=== PATIENT | male | born 1970 | race Caucasian/White ===

== ENCOUNTER 2016-07-29 20:35 | Emergency (ER) | payer MEDICAID ==
[2016-07-29] MEDS ORDERED: Bacitracin/Neomycin/Polymyxin B Oint 0.9 GM U/D Packet ONE (20:57)
[2016-07-29] MEDS ORDERED: Lidocaine 2% with EPINEPHrine 1:100,000 20 ML MDV INJECT ONE (21:00)
[2016-07-29] MEDS ORDERED: Lidocaine 2% with EPINEPHrine 1:100,000 20 ML MDV ONE (21:03)
--- NOTE | 2016-07-29 21:27 | EDM.PDOC ---
ED HPI GENERAL MEDICAL PROBLEM - General Chief Complaint: General Stated Complaint: fall Time Seen by Provider: 07/29/16 21:00 Source of Information: Reports: Patient, Significant Other History Limitations: Reports: Altered Mental Status, Intoxication - History of Present Illness INITIAL COMMENTS - FREE TEXT/NARRATIVE: Patient was with girlfriend at local bar after having 1 beer and 1 shot of liqour he and his S/O were walking home when he tripped and fell to the ground hitting the right frontal region of his head sustaining a 2 cm laceration to the right frontal region. Girlfriend states no LOC-multiple abrasions on the bilateral hands, left knee and left cheek bone and left ear. Patient denies nausea or vomiting or other injury. "Just put some stitches in my head and let me out of here." Onset: Today Onset Date: 07/29/16 Onset Time: 20:30 (Arrival by ambulance-transportation only) Duration: Improving Location: Reports: Head, Face, Upper Extremity, Left, Upper Extremity, Right, Lower Extremity, Left Quality: Reports: Burning Severity: Mild Improves with: Reports: Rest Worsens with: Reports: Other (Abrasions cleansing) Associated Symptoms: Denies: Confusion, Fever/Chills, Headaches, Nausea/Vomiting , Seizure Treatments [employer]: Reports: Other (see below) (ETOH) - Related Data Allergies Allergy/AdvReac Type Severity Reaction Status Date / Time No Known Allergies Allergy Verified 07/29/16 20:43 Home Meds: Home Meds . [No Known Home Meds] 12/20/15 [History] Past Medical History Cardiovascular History: Reports: Cardiomyopathy, Hypertension Musculoskeletal History: Reports: Fracture (Right Femur) Psychiatric History: Reports: PTSD - Past Surgical History Musculoskeletal Surgical History: Reports: Knee Replacement, Other (See Below) Social & Family History - Family History Family Medical History: Noncontributory - Tobacco Use Smoking Status *Q: Current Every Day Smoker Years of Tobacco use: 20 Packs/Tins Daily: 0.5 Used Tobacco, but Quit: Yes Month Tobacco Last Used: 5 years ago - Caffeine Use Caffeine Use: Reports: None, Coffee - Alcohol Use Alcohol Use History: Yes Number of Drinks Per Day: 12 Alcohol Use in Last Twelve Months: Yes Alcohol Use Frequency: Daily - Recreational Drug Use Recreational Drug Use: No - Living Situation & Occupation Living situation: Reports: with Significant Other Occupation: Unemployed ED ROS GENERAL - Review of Systems Review Of Systems: See Below Constitutional: Reports: No Symptoms HEENT: Reports: Ear Pain Respiratory: Reports: No Symptoms Cardiovascular: Reports: No Symptoms Endocrine: Reports: No Symptoms GI/Abdominal: Reports: No Symptoms : Reports: No Symptoms Musculoskeletal: Reports: No Symptoms Skin: Reports: Lesions, Other (Simple laceration Right Frontal region-abrasions and contusions) Neurological: Reports: No Symptoms. Denies: Confusion, Headache, Numbness, Paresthesia, Trouble Speaking, Difficulty Walking, Change in Speech, Gait Disturbance Psychiatric: Reports: Mood Lability Hematologic/Lymphatic: Reports: No Symptoms Immunologic: Reports: No Symptoms ED EXAM, GENERAL - Physical Exam Exam: See Below Exam Limited By: Intoxication General Appearance: Alert, WD/WN, No Apparent Distress Eye Exam: Bilateral Eye: EOMI, Normal Fundi, Normal Inspection, Nystagmus, PERRL , Vision Changes (Negative) Ears: Normal Canal, Hearing Grossly Normal, Normal TMs (Small abrasion) Ear Exam: Left Ear: Auricle Normal (small abrasion Left auricle), Bilateral Ear : Canal Normal, TM normal Nose: Normal Inspection, Normal Mucosa, No Blood Throat/Mouth: Normal Inspection, Normal Lips, Normal Teeth (Dental caries with oral snuff), Normal Gums, Normal Oropharynx, Normal Voice, No Airway Compromise Head: Normocephalic. No: Facial Tenderness (2 cm laceration Right frontal region-hematoma noted) Neck: Normal Inspection, Supple, Non-Tender, Full Range of Motion Respiratory/Chest: No Respiratory Distress, Lungs Clear, Normal Breath Sounds, No Accessory Muscle Use, Chest Non-Tender Cardiovascular: Normal Peripheral Pulses, Regular Rate, Rhythm, No Edema, No Gallop, No JVD, No Murmur, No Rub Peripheral Pulses: 2+: Radial (L), Radial (R) GI/Abdominal: Non-Tender (Male) Exam: Deferred Rectal (Males) Exam: Deferred Back Exam: Normal Inspection, Full Range of Motion Extremities: Normal Inspection, Normal Range of Motion, Non-Tender, No Pedal Edema, Normal Capillary Refill (Varicosities and telangitasis noted.) Neurological: Alert, Oriented, CN II-XII Intact, Normal Cognition, Normal Gait, Normal Reflexes, No Motor/Sensory Deficits. No: Memory Loss Recent Events, Abnormal Reflexes, Sensory/Motor Deficit Psychiatric: Normal Mood, Other (Refuses treatment through out treatment with cleansing abrasion and dressings) Skin Exam: Warm, Dry, No Rash, Ecchymosis Lymphatic: No Adenopathy ED GENERAL MEDICAL PROCEDURES - Laceration/Wound Repair Left Lateral Head Lac/wound length in cm: 2 Appearance: Superficial, Irregular, Mildly Contaminated Distal NVT: Neuro & Vascular Intact, No Tendon Injury Anesthetic Type: Local Local Anesthesia - Lidocaine (Xylocaine): 1% With EPI Local Anesthetic Volume: 2cc Skin Prep: Chlorhexidine (Hibiciens), Saline, Sterile Drape Saline irrigation (cc's): 100 Exploration/Debridement/Repair: Wound Explored, Explored to Base, Minimal Debridement Closed with: Tania Sterile Dressing Applied: Provider Tetanus Status Addressed: Other (Up to date per patient) Course - Orders/Labs/Meds Meds: Medications Discontinued Medications Generic Name Dose Route Start Last Admin Trade Name Humbleq PRN Reason Stop Dose Admin Lidocaine/Epinephrine Confirm 07/29/16 21:03 Xylocaine 2% With Epinephrine 1:100,000 Administered 07/29/16 21:04 Dose 20 ml .ROUTE .STK-MED ONE Neomycin/Polymyxin/Bacitracin Confirm 07/29/16 20:57 Triple Antibiotic Oint Administered 07/29/16 20:58 Dose 2 each .ROUTE .STK-MED ONE Departure - Departure Time of Disposition: 21:39 Disposition: Against Medical Advice 07 Clinical Impression: Head injury, Laceration, Multiple contusions, Intoxication - Discharge Information Forms: ED Department Discharge Additional Instructions: Discussed with S/O observation post head injury Refuses CT. Skin Clip Removal in 8-10 days F/U ER and PCP as indicated any worsening of condition, confusion, fever or abnormal LOC. Patient signed AMA after laceration repair. - Problem List & Annotations (1) Laceration SNOMED Code(s): 330488679 Code(s): JBC8053 - Status: Acute Current Visit: Yes (2) Head injury SNOMED Code(s): 22698918 Code(s): S09.90XA - UNSPECIFIED INJURY OF HEAD, INITIAL ENCOUNTER Status: Acute Current Visit: Yes Qualifiers: Encounter type: initial encounter Qualified Code(s): S09.90XA - Unspecified injury of head, initial encounter (3) ETOH abuse SNOMED Code(s): 80947210 Code(s): F10.10 - ALCOHOL ABUSE, UNCOMPLICATED Status: Acute Current Visit: Yes - Assessment/Plan Assessment:: Ground Level fall Intoxication 2 cm laceration Right Frontal region with repair Abrasions and contusion- AMA for CT scan Plan: Discussed with S/O observation post head injury Refuses CT. Skin Clip Removal in 8-10 days F/U ER and PCP as indicated any worsening of condition, confusion, fever or abnormal LOC. Patient signed AMA after laceration repair.
[2016-07-29] MEDS ORDERED: Ciprofloxacin 500 MG Tab ONE (22:15)
[2016-07-30 00:08] VITALS: BP 178/111
[2016-07-30] MEDS ORDERED: Bacitracin/Neomycin/Polymyxin B Oint 0.9 GM U/D Packet TOP ONE (01:29)
== END 2016-07-29 21:25 | disposition left against medical advice (07) ==
LOC: CC.ED 20:35
DX: S01.81XA Laceration without foreign body of other part of head, initial encounter (principal); S60.512A Abrasion of left hand, initial encounter; S60.511A Abrasion of right hand, initial encounter; S80.212A Abrasion, left knee, initial encounter; S00.81XA Abrasion of other part of head, initial encounter; S00.412A Abrasion of left ear, initial encounter; F10.129 Alcohol abuse with intoxication, unspecified; I10 Essential (primary) hypertension; F43.10 Post-traumatic stress disorder, unspecified; F17.210 Nicotine dependence, cigarettes, uncomplicated; Z96.659 Presence of unspecified artificial knee joint; W01.0XXA Fall on same level from slipping, tripping and stumbling without subsequent striking against object, initial encounter
CPT/HCPCS: 12011; 99283

== ENCOUNTER 2017-04-12 01:25 | Emergency (ER) | payer BC, MEDICAID ==
[2017-04-12] MEDS ORDERED: Nitroglycerin 0.4 MG Tab.SL SL PRN (01:47)
[2017-04-12] MEDS: Nitroglycerin 0.4 MG Tab.SL SL PRN ×2 (01:57→02:21)
--- NOTE | 2017-04-12 02:14 | EDM.PDOC ---
ED HPI GENERAL MEDICAL PROBLEM - General Chief Complaint: General Stated Complaint: Shoulder pain Time Seen by Provider: 04/12/17 01:40 Source of Information: Reports: Patient History Limitations: Reports: No Limitations - History of Present Illness INITIAL COMMENTS - FREE TEXT/NARRATIVE: presents to the ER with left shoulder pain, mild chest pain and some sob. Patient states he was told he had an enlarged heart about 15 years ago. Onset: Today, Sudden Duration: Minutes: Location: Reports: Chest Quality: Reports: Dull, Pressure Severity: Mild Improves with: Reports: None Worsens with: Reports: None left shoulder Pain Score (Numeric/FACES): 8 bilat thighs Pain Score (Numeric/FACES): 5 - Related Data Allergies Allergy/AdvReac Type Severity Reaction Status Date / Time No Known Allergies Allergy Verified 04/12/17 01:39 Home Meds: Home Meds Aspirin 325 mg PO BID 04/12/17 [History] Past Medical History Cardiovascular History: Reports: Cardiomyopathy, Hypertension Musculoskeletal History: Reports: Fracture (Right Femur) Psychiatric History: Reports: PTSD - Past Surgical History Musculoskeletal Surgical History: Reports: Knee Replacement, Other (See Below) Social & Family History - Family History Family Medical History: Noncontributory Cardiac: Reports: Cardiomyopathy, Heart Failure - Tobacco Use Smoking Status *Q: Current Every Day Smoker Years of Tobacco use: 15 Packs/Tins Daily: 0.5 Used Tobacco, but Quit: Yes Month Tobacco Last Used: 5 years ago - Tobacco Core Measures Tobacco Use/Smoking Within Last 30 Days: Yes Smoking Frequency Within Last 30 Days: Reports: Four or Less Cigarettes Per Day - Caffeine Use Caffeine Use: Reports: None, Coffee - Alcohol Use Alcohol Use History: Yes Days Per Week of Alcohol Use: 7 Number of Drinks Per Day: 8 Total Drinks Per Week: 56 - Recreational Drug Use Recreational Drug Use: No Recreational Drug Type: Reports: Marijuana/Hashish - Living Situation & Occupation Living situation: Reports: with Significant Other Occupation: Unemployed ED ROS GENERAL - Review of Systems Review Of Systems: See Below Constitutional: Reports: No Symptoms HEENT: Reports: No Symptoms Respiratory: Reports: Shortness of Breath Cardiovascular: Reports: Chest Pain Endocrine: Reports: No Symptoms GI/Abdominal: Reports: No Symptoms : Reports: No Symptoms Musculoskeletal: Reports: Leg Pain Skin: Reports: No Symptoms Neurological: Reports: No Symptoms Psychiatric: Reports: No Symptoms Hematologic/Lymphatic: Reports: No Symptoms Immunologic: Reports: No Symptoms ED EXAM, GENERAL - Physical Exam Exam: See Below Exam Limited By: No Limitations General Appearance: Alert, Anxious Ears: Normal External Exam Nose: Normal Inspection Throat/Mouth: Normal Inspection Head: Atraumatic Neck: Normal Inspection Respiratory/Chest: No Respiratory Distress Cardiovascular: Normal Peripheral Pulses GI/Abdominal: Normal Bowel Sounds (Male) Exam: No Hernia Rectal (Males) Exam: Normal Exam Back Exam: Normal Inspection Extremities: Normal Inspection Neurological: Alert, Oriented Psychiatric: Normal Affect Skin Exam: Warm, Dry Course - Vital Signs Last Recorded V/S: Last Vital Signs Temp 97.6 F 04/12/17 02:28 Pulse 95 04/12/17 02:28 Resp 16 04/12/17 02:28 BP 160/101 H 04/12/17 02:28 Pulse Ox 96 04/12/17 02:28 - Orders/Labs/Meds Orders: Active Orders 24 hr Category Date Time Status Cardiac Monitoring [RC] . DIRECTED Care 04/12/17 01:56 Ordered EKG Documentation Completion [RC] STAT Care 04/12/17 01:35 Active Chest 2V [CR] Stat Exams 04/12/17 01:47 Ordered Nitroglycerin [Nitrostat] Med 04/12/17 01:45 Active 0.4 mg SL Q5M PRN Nitroglycerin [Nitrostat] Med 04/12/17 01:47 Ordered 0.4 mg SL Q5M PRN Medication Orders Nitroglycerin (Nitrostat) 0.4 mg SL Q5M PRN PRN Reason: Chest Pain Last Admin: 04/12/17 02:21 Dose: 0.4 mg Admin: 04/12/17 01:57 Dose: 0.4 mg Nitroglycerin (Nitrostat) 0.4 mg SL Q5M PRN PRN Reason: Chest Pain Labs: Laboratory Tests 04/12/17 04/12/17 04/12/17 Range/Units 02:00 02:00 02:00 WBC 5.2 (5.0-10.0) 10^3/uL RBC 4.17 L (4.50-6.00) 10^6/uL Hgb 12.9 L (14.0-18.0) g/dL Hct 36.1 L (40.0-54.0) % MCV 86.6 (82.0-94.0) fL MCH 30.9 (27.0-32.0) pg MCHC 35.7 (33.0-38.0) g/dL RDW Coeff of Karl 14.8 (11.0-15.0) % Plt Count 99 L (150-400) 10^3/uL MPV 9.8 fL PT 10.0 (9.7-12.3) SEC INR 0.93 (0.92-1.18) APTT 28.7 (24.5-30.9) SEC D-Dimer, Quantitative 0.47 (0.00-0.50) Sodium 131 L (136-145) mEq/L Potassium 3.7 (3.5-5.0) mEq/L Chloride 95 L (98-106) mEq/L Carbon Dioxide 24 (21-32) mmol/L BUN 9 (7-18) mg/dL Creatinine 0.7 (0.7-1.3) mg/dL Est Cr Clr Drug Dosing 184.14 mL/min Estimated GFR (MDRD) > 60 (>=60) mL/min Glucose 106 H (75-99) mg/dL Calcium 8.4 (8.4-10.1) mg/dL Total Bilirubin 0.4 (0.0-1.0) mg/dL AST 45 H (15-37) U/L ALT 49 (12-78) U/L Alkaline Phosphatase 70 (46-116) U/L Creatine Kinase 255 H (35-232) U/L Troponin I < 0.017 (0.00-0.06) ng/mL Total Protein 7.3 (6.4-8.2) g/dL Albumin 3.8 (3.4-5.0) g/dL Urine Color (YELLOW) Urine Appearance (CLEAR) Urine pH (4.5-8.0) Ur Specific [place] (1.003-1.020) Urine Protein (NEGATIVE) mg/dL Urine Glucose (UA) (NEGATIVE) mg/dL Urine Ketones (NEGATIVE) mg/dL Urine Occult Blood (NEGATIVE) Urine Nitrite (NEGATIVE) Urine Bilirubin (NEGATIVE) Urine Urobilinogen (0.2-1.0) EU/dL Ur Leukocyte Esterase (NEGATIVE) Urine RBC (0-5) /HPF Urine WBC (0-5) /HPF 04/12/17 Range/Units 02:00 WBC (5.0-10.0) 10^3/uL RBC (4.50-6.00) 10^6/uL Hgb (14.0-18.0) g/dL Hct (40.0-54.0) % MCV (82.0-94.0) fL MCH (27.0-32.0) pg MCHC (33.0-38.0) g/dL RDW Coeff of Karl (11.0-15.0) % Plt Count (150-400) 10^3/uL MPV fL PT (9.7-12.3) SEC INR (0.92-1.18) APTT (24.5-30.9) SEC D-Dimer, Quantitative (0.00-0.50) Sodium (136-145) mEq/L Potassium (3.5-5.0) mEq/L Chloride (98-106) mEq/L Carbon Dioxide (21-32) mmol/L BUN (7-18) mg/dL Creatinine (0.7-1.3) mg/dL Est Cr Clr Drug Dosing mL/min Estimated GFR (MDRD) (>=60) mL/min Glucose (75-99) mg/dL Calcium (8.4-10.1) mg/dL Total Bilirubin (0.0-1.0) mg/dL AST (15-37) U/L ALT (12-78) U/L Alkaline Phosphatase (46-116) U/L Creatine Kinase (35-232) U/L Troponin I (0.00-0.06) ng/mL Total Protein (6.4-8.2) g/dL Albumin (3.4-5.0) g/dL Urine Color Light yellow (YELLOW) Urine Appearance Clear (CLEAR) Urine pH 6.0 (4.5-8.0) Ur Specific [place] 1.010 (1.003-1.020) Urine Protein Negative (NEGATIVE) mg/dL Urine Glucose (UA) Negative (NEGATIVE) mg/dL Urine Ketones Negative (NEGATIVE) mg/dL Urine Occult Blood Negative (NEGATIVE) Urine Nitrite Negative (NEGATIVE) Urine Bilirubin Negative (NEGATIVE) Urine Urobilinogen 0.2 (0.2-1.0) EU/dL Ur Leukocyte Esterase Negative (NEGATIVE) Urine RBC Not seen (0-5) /HPF Urine WBC Not seen (0-5) /HPF Meds: Medications Generic Name Dose Route Start Last Admin Trade Name Mayuri PRN Reason Stop Dose Admin Nitroglycerin 0.4 mg 04/12/17 01:45 04/12/17 02:21 Nitrostat SL 0.4 mg Q5M PRN Administration Chest Pain Nitroglycerin 0.4 mg 04/12/17 01:47 Nitrostat SL Q5M PRN Chest Pain Discontinued Medications Generic Name Dose Route Start Last Admin Trade Name Mayuri PRN Reason Stop Dose Admin Aspirin 324 mg 04/12/17 02:27 04/12/17 02:30 Aspirin PO 04/12/17 02:28 324 mg ONETIME ONE Administration Metoprolol Tartrate 25 mg 04/12/17 02:35 Lopressor PO 04/12/17 02:36 ONETIME ONE Departure - Departure Time of Disposition: 02:39 (I strongly suggested that the patient hold in ER for a few hours to repeat Troponins to rule out SC, but he declined and schose to go home.) Disposition: Home, Self-Care 01 Condition: Good Clinical Impression: Angina at rest, ETOH abuse - Discharge Information Instructions: Angina Pectoris Referrals: Rigoberto Steinberg MD [Primary Care Provider] - Additional Instructions: follow up with your regular doctor next week for possible referral to cardiology for further work-up. - My Orders Last 24 Hours: My Active Orders 04/12/17 01:35 EKG Documentation Completion [RC] STAT 04/12/17 01:45 Nitroglycerin [Nitrostat] 0.4 mg SL Q5M PRN 04/12/17 01:47 Chest 2V [CR] Stat Nitroglycerin [Nitrostat] 0.4 mg SL Q5M PRN 04/12/17 01:56 Cardiac Monitoring [RC] . DIRECTED - Assessment/Plan Last 24 Hours: My Active Orders 04/12/17 01:35 EKG Documentation Completion [RC] STAT 04/12/17 01:45 Nitroglycerin [Nitrostat] 0.4 mg SL Q5M PRN 04/12/17 01:47 Chest 2V [CR] Stat Nitroglycerin [Nitrostat] 0.4 mg SL Q5M PRN 04/12/17 01:56 Cardiac Monitoring [RC] . DIRECTED
[2017-04-12 02:24] LABS: CHLORIDE,CL 95 mEq/L (98-106); SODIUM,NA 131 mEq/L (136-145)
[2017-04-12] MEDS ORDERED: Aspirin 81 MG Tab.Chew PO ONE (02:27)
[2017-04-12 02:29] VITALS: BP 160/101
[2017-04-12] MEDS ORDERED: Metoprolol Tartrate 25 MG Tab PO ONE (02:35)
== END 2017-04-12 02:50 | disposition home or self-care (01) ==
LOC: CC.ED 01:25 → SUPCPDRO 01:25 → CC.ED 02:50
DX: I20.9 Angina pectoris, unspecified (principal); F10.10 Alcohol abuse, uncomplicated; Y90.9 Presence of alcohol in blood, level not specified; I10 Essential (primary) hypertension; I42.9 Cardiomyopathy, unspecified; F17.210 Nicotine dependence, cigarettes, uncomplicated; Z79.82 Long term (current) use of aspirin
CPT/HCPCS: 36415; 71046; 80053; 81001; 82550; 84484; 85027; 85379; 85610; 85730; 93005; 99283; A9270

== ENCOUNTER 2017-09-11 01:33 | Emergency (ER) | payer BC, MEDICAID ==
[2017-09-11 02:19] VITALS: BP 162/98
== END 2017-09-11 01:45 | disposition left against medical advice (07) ==
LOC: CC.ED 01:33
DX: Z53.21 Procedure and treatment not carried out due to patient leaving prior to being seen by health care provider (principal)

== ENCOUNTER 2017-10-13 06:55 | Emergency (ER) | payer SELFPAY ==
[2017-10-13] MEDS ORDERED: Naloxone 2 MG/2 ML Syringe IVPUSH ONE (07:19)
[2017-10-13] MEDS ORDERED: Ondansetron 4 MG/2 ML SDV IVPUSH STA (07:19)
[2017-10-13 07:32] LABS: CHLORIDE,CL 95 mEq/L (98-106); SODIUM,NA 130 mEq/L (136-145)
[2017-10-13 07:43] VITALS: BP 182/106
[2017-10-13] MEDS ORDERED: Sodium Chloride 0.9% 1,000 ML IV ONE (07:44)
--- NOTE | 2017-10-13 08:04 | EDM.PDOC ---
ED HPI GENERAL MEDICAL PROBLEM - General Chief Complaint: General Stated Complaint: GOT BAD HEROIN Time Seen by Provider: 10/13/17 07:30 Source of Information: Reports: Patient History Limitations: Reports: No Limitations - History of Present Illness INITIAL COMMENTS - FREE TEXT/NARRATIVE: Patient presents with complaints of "feeling off this am". Admits to injecting drugs at 430 today and questions if it "was a bad drug". He thought it was heroin but relates he has done that before and has never felt like this. He feels like he is uncoordinated, like he can't move well. Mild nausea. No vomiting. Feels on edge. Denies chest pain or shortness of breath. No vision changes. Feels weak. No fever. Onset: Today, Sudden Duration: Hour(s): Location: Reports: Generalized Severity: Moderate Improves with: Reports: Rest Associated Symptoms: Reports: Nausea/Vomiting, Weakness. Denies: Chest Pain, Fever/Chills, Loss of Appetite, Shortness of Breath - Related Data Allergies Allergy/AdvReac Type Severity Reaction Status Date / Time No Known Allergies Allergy Verified 10/13/17 07:01 Home Meds: Home Meds Lisinopril 40 mg PO DAILY 09/11/17 [History] Omeprazole 20 mg PO DAILY PRN 09/11/17 [History] Past Medical History Cardiovascular History: Reports: Cardiomyopathy, Hypertension Gastrointestinal History: Reports: GERD Musculoskeletal History: Reports: Fracture Psychiatric History: Reports: PTSD - Past Surgical History HEENT Surgical History: Reports: Tonsillectomy Musculoskeletal Surgical History: Reports: Knee Replacement, Other (See Below) Social & Family History - Family History Family Medical History: Noncontributory Cardiac: Reports: Cardiomyopathy, Heart Failure - Tobacco Use Smoking Status *Q: Current Some Day Smoker Years of Tobacco use: 20 Packs/Tins Daily: 0.2 - Caffeine Use Caffeine Use: Reports: None, Coffee - Recreational Drug Use Recreational Drug Use: Yes Recreational Drug Type: Reports: Amphetamines (Speed), Heroin, Methamphetamine Recreational Drug Use Frequency: Socially - Living Situation & Occupation Living situation: Reports: with Significant Other Occupation: Unemployed ED ROS GENERAL - Review of Systems Review Of Systems: See Below Constitutional: Reports: Malaise, Weakness, Fatigue. Denies: Night Sweats, Diaphoresis HEENT: Reports: Rhinitis. Denies: Ear Discharge, Ear Pain, Throat Pain, Throat Swelling Respiratory: Denies: Shortness of Breath, Wheezing, Cough Cardiovascular: Denies: Chest Pain, Edema, Lightheadedness Endocrine: Reports: Fatigue GI/Abdominal: Reports: Nausea. Denies: Abdominal Pain, Diarrhea : Reports: No Symptoms Musculoskeletal: Reports: No Symptoms Skin: Reports: No Symptoms Neurological: Reports: Confusion, Dizziness, Weakness, Change in Speech. Denies : Headache Psychiatric: Reports: Agitation. Denies: Hallucinations ED EXAM, GENERAL - Physical Exam Exam: See Below Exam Limited By: No Limitations General Appearance: Alert, WD/WN, No Apparent Distress Eye Exam: Bilateral Eye: EOMI, PERRL Ears: Normal External Exam, Normal TMs Nose: Normal Inspection, Normal Mucosa, No Blood Throat/Mouth: Normal Inspection, Normal Oropharynx Head: Normocephalic Neck: Normal Inspection, Supple, Non-Tender Respiratory/Chest: No Respiratory Distress, Lungs Clear, Normal Breath Sounds Cardiovascular: Tachycardia GI/Abdominal: Normal Bowel Sounds, Soft, Non-Tender Extremities: Normal Inspection, No Pedal Edema Neurological: Alert, Oriented Course - Vital Signs Last Recorded V/S: Last Vital Signs Temp 96.8 F 10/13/17 07:40 Pulse 116 H 10/13/17 07:40 Resp 16 10/13/17 07:40 BP 182/106 H 10/13/17 07:40 Pulse Ox 100 10/13/17 07:40 - Orders/Labs/Meds Orders: Active Orders 24 hr Category Date Time Status DRUG SCREEN URINE BIORAD [URCHEM] Stat Lab 10/13/17 08:29 Ordered Labs: Laboratory Tests 10/13/17 10/13/17 10/13/17 Range/Units 07:15 07:15 08:29 WBC 5.6 (5.0-10.0) 10^3/uL RBC 4.32 L (4.50-6.00) 10^6/uL Hgb 13.9 L (14.0-18.0) g/dL Hct 39.1 L (40.0-54.0) % MCV 90.5 (82.0-94.0) fL MCH 32.2 H (27.0-32.0) pg MCHC 35.5 (33.0-38.0) g/dL RDW Coeff of Karl 14.2 (11.0-15.0) % Plt Count 105 L (150-400) 10^3/uL Neut % (Auto) 58.6 (35-85) % Lymph % (Auto) 31.2 (10-55) % Luna % (Auto) 9.3 (0-16) % Eos % (Auto) 0.7 (0-5) % Baso % (Auto) 0.2 (0-3) % Neut # (Auto) 3.29 (1.80-7.00) 10^3/uL Lymph # (Auto) 1.75 (1.00-4.80) 10^3/uL Luna # (Auto) 0.52 (0.00-0.80) 10^3/uL Eos # (Auto) 0.04 (0.00-0.45) 10^3/uL Baso # (Auto) 0.01 10^3/uL Sodium 130 L (136-145) mEq/L Potassium 3.5 D (3.5-5.0) mEq/L Chloride 95 L (98-106) mEq/L Carbon Dioxide 25 (21-32) mmol/L BUN 5 L (7-18) mg/dL Creatinine 0.7 (0.7-1.3) mg/dL Est Cr Clr Drug Dosing TNP Estimated GFR (MDRD) > 60 (>=60) mL/min Glucose 121 H (75-99) mg/dL Calcium 8.1 L (8.4-10.1) mg/dL Total Bilirubin 0.4 (0.0-1.0) mg/dL AST 63 H (15-37) U/L ALT 62 (12-78) U/L Alkaline Phosphatase 85 (46-116) U/L Total Protein 7.9 (6.4-8.2) g/dL Albumin 3.9 (3.4-5.0) g/dL Urine Opiates Screen Negative (NEGATIVE) Ur Oxycodone Screen Negative (NEGATIVE) Urine Methadone Screen Negative (NEGATIVE) Ur Barbiturates Screen Negative (NEGATIVE) U Tricyclic Antidepress Negative (NEGATIVE) Ur Phencyclidine Scrn Negative (NEGATIVE) Ur Amphetamine Screen Negative (NEGATIVE) U Methamphetamines Scrn Positive H (NEGATIVE) Urine MDMA Screen Negative (NEGATIVE) U Benzodiazepines Scrn Negative (NEGATIVE) Urine Cocaine Screen Negative (NEGATIVE) U Marijuana (THC) Screen Negative (NEGATIVE) Meds: Medications Discontinued Medications Generic Name Dose Route Start Last Admin Trade Name Mayuri PRN Reason Stop Dose Admin Sodium Chloride 1,000 mls @ 999 mls/hr 10/13/17 07:44 10/13/17 07:48 Normal Saline IV 10/13/17 08:44 999 mls/hr .BOLUS ONE Administration Naloxone HCl 1 mg 10/13/17 07:19 10/13/17 07:35 Narcan IVPUSH 10/13/17 07:20 1 mg ONETIME ONE Administration Ondansetron HCl 4 mg 10/13/17 07:19 10/13/17 07:35 Zofran IVPUSH 10/13/17 07:20 4 mg NOW STA Administration - Re-Assessments/Exams Free Text/Narrative Re-Assessment/Exam: 10/13/17 0800 Patient given Narcan, started IV fluids. Is appropriate. Did take some time to obtain a urine specimen. Tested positive for meth. After patient was given a liter of fluids, opted to leave AMA. Departure - Departure Time of Disposition: 09:00 Disposition: Against Medical Advice 07 Condition: Fair Clinical Impression: Methamphetamine abuse - Discharge Information Referrals: Provider,Unknown [Ordering Only Provider] - Forms: ED Department Discharge - My Orders Last 24 Hours: My Active Orders 10/13/17 08:29 DRUG SCREEN URINE BIORAD [URCHEM] Stat - Assessment/Plan Last 24 Hours: My Active Orders 10/13/17 08:29 DRUG SCREEN URINE BIORAD [URCHEM] Stat
== END 2017-10-13 09:00 | disposition left against medical advice (07) ==
LOC: CC.ED 06:55
DX: F15.120 Other stimulant abuse with intoxication, uncomplicated (principal); F17.210 Nicotine dependence, cigarettes, uncomplicated; I10 Essential (primary) hypertension; Z79.899 Other long term (current) drug therapy
CPT/HCPCS: 36415; 80053; 80305-QW; 85025; 96361; 96374; 96375; 99285; J2310; J2405; J7030

== ENCOUNTER 2017-10-14 04:57 | Emergency (ER) | payer SELFPAY ==
[2017-10-14] MEDS ORDERED: Ondansetron 4 MG Tab.DIS PO ONE ×2 (04:58→05:46)
[2017-10-14 05:01] VITALS: BP 186/114
[2017-10-14] MEDS ORDERED: Lisinopril 20 MG Tab PO SCH ×2 (05:45→06:00)
[2017-10-14] MEDS ORDERED: LORazepam 0.5 MG Tab PO ONE ×2 (05:46→15:20)
[2017-10-14] MEDS ORDERED: Lisinopril 5 MG Tab PO ONE (05:47)
[2017-10-14] MEDS ORDERED: Take Home: LORazepam 0.5 MG Tab, 2 Tab Pack PO ONE (05:49)
[2017-10-14] MEDS ORDERED: Lisinopril 20 MG Tab ONE (05:56)
--- NOTE | 2017-10-14 05:57 | EDM.PDOC ---
ED HPI GENERAL MEDICAL PROBLEM - General Chief Complaint: General Stated Complaint: ALCOHOL WITHDRAWAL Time Seen by Provider: 10/14/17 05:37 - History of Present Illness INITIAL COMMENTS - FREE TEXT/NARRATIVE: Yoan is a 46 year old male who presents to the ED with c/o alcohol withdrawal. He reports he was seen in the ED early yesterday morning as he had used methamphetamine. He reports he was hanging out with the wrong crown and now he has realized this. He reports he normally drinks 6-12 beers/day. He reports his last drink was Friday. He reports now he has tremors and is very anxious. He is wondering if he can have a medication to help him with these symptoms and "prevent seizures." He is alert and oriented. He denies any delusions. Denies any chest pain, dizziness, or shortness of breath. He reports he did have some chest tightness earlier. Reports he has had nausea and vomiting, as well as cold sweats. Denies any other issues. Had lab work completed yesterday morning. Urine drug screen was positive for methamphetamines. Associated Symptoms: Reports: Diaphoresis, Headaches. Denies: Confusion, Chest Pain, Cough, cough w sputum, Fever/Chills, Loss of Appetite, Malaise, Nausea/ Vomiting, Rash, Seizure, Shortness of Breath, Syncope, Weakness Abdominal Pain Score (Numeric/FACES): 7 - Related Data Allergies Allergy/AdvReac Type Severity Reaction Status Date / Time No Known Allergies Allergy Verified 10/14/17 04:59 Home Meds: Home Meds Lisinopril 40 mg PO DAILY 09/11/17 [History] Omeprazole 20 mg PO DAILY PRN 09/11/17 [History] Past Medical History Cardiovascular History: Reports: Cardiomyopathy, Hypertension Gastrointestinal History: Reports: GERD Musculoskeletal History: Reports: Fracture Psychiatric History: Reports: Addiction, PTSD Other Psychiatric History: ALCOHOLISM - Past Surgical History HEENT Surgical History: Reports: Tonsillectomy Musculoskeletal Surgical History: Reports: Knee Replacement, Other (See Below) Social & Family History - Family History Family Medical History: Noncontributory Cardiac: Reports: Cardiomyopathy, Heart Failure - Tobacco Use Smoking Status *Q: Current Every Day Smoker Years of Tobacco use: 3 Packs/Tins Daily: 0.7 - Caffeine Use Caffeine Use: Reports: None, Coffee - Alcohol Use Days Per Week of Alcohol Use: 7 Number of Drinks Per Day: 12 Total Drinks Per Week: 84 Date of Last Drink: 10/12/17 - Recreational Drug Use Recreational Drug Use: Yes Drug Use in Last 12 Months: Yes Recreational Drug Type: Reports: Methamphetamine - Living Situation & Occupation Living situation: Reports: with Significant Other Occupation: Unemployed ED ROS GENERAL - Review of Systems Review Of Systems: ROS reveals no pertinent complaints other than HPI. ED EXAM, GENERAL - Physical Exam Exam: See Below Exam Limited By: No Limitations General Appearance: Alert, WD/WN, Mild Distress Eye Exam: Bilateral Eye: EOMI, Normal Fundi, Normal Inspection, PERRL Head: Atraumatic, Normocephalic Neck: Normal Inspection, Supple, Non-Tender, Full Range of Motion Respiratory/Chest: No Respiratory Distress, Lungs Clear, Normal Breath Sounds, No Accessory Muscle Use, Chest Non-Tender Cardiovascular: Normal Peripheral Pulses, Regular Rate, Rhythm, No Edema, No Gallop, No JVD, No Murmur, No Rub, Tachycardia GI/Abdominal: Normal Bowel Sounds, Soft, Non-Tender, No Organomegaly, No Distention, No Abnormal Bruit, No Mass Extremities: Normal Inspection, Normal Range of Motion, Non-Tender, Normal Capillary Refill, No Pedal Edema Neurological: Alert, Oriented, CN II-XII Intact, Normal Cognition, Normal Gait, Normal Reflexes, No Motor/Sensory Deficits Psychiatric: Anxious Skin Exam: Warm, Intact, Other (clammy) Lymphatic: No Adenopathy EKG INTERPRETATION EKG Date: 10/14/17 Rhythm: NSR [place]: Normal P-Wave: Present QRS: Normal ST-T: Normal QT: Normal Comparison: NA - No Prior EKG Course - Vital Signs Last Recorded V/S: Last Vital Signs Temp 96.3 F 10/14/17 04:59 Pulse 109 H 10/14/17 04:59 Resp 18 10/14/17 04:59 BP 186/114 H 10/14/17 04:59 Pulse Ox 98 10/14/17 04:59 - Orders/Labs/Meds Orders: Active Orders 24 hr Category Date Time Status EKG Documentation Completion [RC] STAT Care 10/14/17 05:19 Active Meds: Medications Discontinued Medications Generic Name Dose Route Start Last Admin Trade Name Freq PRN Reason Stop Dose Admin Lisinopril 40 mg 10/14/17 05:45 10/14/17 05:56 Prinivil PO 40 mg DAILY JOHNNA Administration Lisinopril 40 mg 10/14/17 05:47 10/14/17 05:58 Prinivil PO 10/14/17 05:48 Not Given ONETIME ONE Lisinopril 80 mg 10/14/17 06:00 Prinivil PO STAT JOHNNA Lisinopril Confirm 10/14/17 05:56 10/14/17 05:58 Prinivil Administered 10/14/17 05:57 120 mg Dose Administration 120 mg .ROUTE .STK-MED ONE Lorazepam 1 mg 10/14/17 05:46 10/14/17 05:56 Ativan PO 10/14/17 05:47 1 mg ONETIME ONE Administration Lorazepam 3 packet 10/14/17 05:49 10/14/17 05:59 Take Home: Lorazepam 0.5 Mg, 2 Tab Pack PO 10/14/17 05:50 3 packet ONETIME ONE Administration Lorazepam 1 mg 10/14/17 15:20 Ativan PO 10/14/17 15:21 .STK-MED ONE Ondansetron HCl 4 mg 10/14/17 05:46 10/14/17 05:56 Zofran Odt PO 10/14/17 05:47 4 mg ONETIME ONE Administration Ondansetron HCl 3 packet 10/14/17 05:58 10/14/17 06:05 Take Home: Ondansetron Odt 4 Mg, 2 Tab Pack PO 10/14/17 05:59 3 packet ONETIME ONE Administration - Re-Assessments/Exams Free Text/Narrative Re-Assessment/Exam: 10/14/17 05:56 Patient wishes to get anxiety medication and go home. He reports he has stopped drinking ETOH on his own before and quit for a year and a half in the past. At this time he does not feel he needs assistance as long as he has something to "prevent seizures" and help with his anxiety/tremors. He refuses transfer for ETOH detox and wishes to discharge home. PLEASE SEE NURSES NOTE FOR PMH, PSH, FH, & SH. Departure - Departure Time of Disposition: 05:57 Disposition: Home, Self-Care 01 Condition: Fair Clinical Impression: Drug abuse, amphetamine type Withdrawal symptoms, alcohol Qualifiers: Complication of substance-induced condition: uncomplicated Qualified Code(s): F10.230 - Alcohol dependence with withdrawal, uncomplicated - Discharge Information *PRESCRIPTION DRUG MONITORING PROGRAM REVIEWED*: Not Applicable *COPY OF PRESCRIPTION DRUG MONITORING REPORT IN PATIENT [facility]: Not Applicable Instructions: Alcohol Use Disorder, Stimulant Use Disorder-Amphetamines, Finding Treatment for Addiction, Recovering From Addiction Referrals: Barbara Yadav PA-C [Primary Care Provider] - Forms: ED Department Discharge Additional Instructions: Lorazepam (Ativan) 0.5 mg tablet every 8 hours as needed for anxiety/tremors/ withdrawal symptoms. 40 mg Lisinopril daily. Discharged home with 2 additional days worth. Zofran (ondansetron) every 8 hours as needed for nausea Push fluids First 72 hours of detox is the most difficult. Avoid alcohol and drugs Need to follow up in clinic with Barbara EVERETT THIS WEEK for refill of medications Return to ED for any worsening of symptoms: seizure, delirium, etc. - My Orders Last 24 Hours: My Active Orders 10/14/17 05:19 EKG Documentation Completion [RC] STAT - Assessment/Plan Last 24 Hours: My Active Orders 10/14/17 05:19 EKG Documentation Completion [RC] STAT
[2017-10-14] MEDS ORDERED: Take Home: Ondansetron 4 MG Tab.DIS, 2 Tab Pack PO ONE (05:58)
== END 2017-10-14 06:10 | disposition home or self-care (01) ==
LOC: CC.ED 04:57
DX: F10.230 Alcohol dependence with withdrawal, uncomplicated (principal); F15.10 Other stimulant abuse, uncomplicated; F17.210 Nicotine dependence, cigarettes, uncomplicated; K21.9 Gastro-esophageal reflux disease without esophagitis; I10 Essential (primary) hypertension; Z79.899 Other long term (current) drug therapy
CPT/HCPCS: 93005; 99284; A9270-GY